=== PATIENT | male | born 1970 | race Caucasian/White ===

== ENCOUNTER 2017-02-18 12:02 | Emergency (ER) | payer SELFPAY ==
[~2017-02-18] VITALS: Ht 162.6 cm; Wt 71.8 kg
[~2017-02-18 12:02] MED LIST: ADVI200C9 PO; [UNRECOGNIZED DRUG - OTHER] PO
[2017-02-18 12:06] VITALS: BP 144/88; PULSE 71; RESP 12; TEMP 98.2; O2SAT 96
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
== END 2017-02-18 13:26 | disposition left against medical advice (07) ==
LOC: NED 12:02
DX: M25.531 Pain in right wrist (principal)
CPT/HCPCS: 99281

== ENCOUNTER 2017-02-20 13:16 | Emergency (ER) | payer SELFPAY ==
[~2017-02-20] VITALS: Ht 162.6 cm; Wt 72.0 kg
[2017-02-20 13:18] VITALS: BP 140/92; PULSE 72; RESP 18; TEMP 98.2; O2SAT 99
--- NOTE | 2017-02-20 13:54 | PD ---
Physical Exam Time Seen by Provider: 13:52 Narrative 46-year-old male presents to the emergency department complaining of right wrist pain and swelling times one and a half weeks. Denies injury. He is also complaining of left hip and lower back pain since November and says it is a work- related injury. Denies fever, vomiting. Denies incontinence of stool or urine. Denies IV drug use or cancer. Patient seen in triage. VS reviewed. Awaiting bed placement. See next providers note for final patient disposition. Data Data Last Documented VS Vital Signs Date Time Temp Pulse Resp B/P (MAP) Pulse Ox O2 Delivery O2 Flow Rate FiO2 02/20/17 13:18 98.2 72 18 140/92 (108) 99 Room Air Orders Orders Wrist, Complete ([id number]) (02/20/17 13:54) MDM Supervised Visit with CAMILA: Kriss Walker Feb 20, 2017 13:54
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
== END 2017-02-20 17:13 | disposition home or self-care (01) ==
LOC: NEPK 13:16
DX: S62.336A Displaced fracture of neck of fifth metacarpal bone, right hand, initial encounter for closed fracture (principal); S32.019A Unspecified fracture of first lumbar vertebra, initial encounter for closed fracture; M65.9 Synovitis and tenosynovitis, unspecified; M25.552 Pain in left hip; W18.30XA Fall on same level, unspecified, initial encounter
CPT/HCPCS: 72100; 73110; 73502; 99284

== ENCOUNTER 2018-02-10 10:23 | Observation (INO) ==
[2018-02-10] MEDS ORDERED: Clindamycin 900 mg/NS Premix 900 MG/50 ML PIGGYBACK IV.SIG ONE (10:59)
[2018-02-10] MEDS ORDERED: Morphine Inj 4 MG/ML Vial IV.PUSH ONE (10:59)
--- NOTE | 2018-02-10 11:10 | ED ---
HPI General Chief complaint: Dental/Oral Stated complaint: Face complaint/right side Time Seen by Provider: 02/10/18 10:56 History of Present Illness HPI Narrative: This is a 47-year-old male with a history of previous traumatic injury to his right mandible in [place], who presents today with complaints of swelling and pain to his right lower jaw. Patient states 2 days ago he noticed swelling and pain in his right jaw. He denies any recent tooth infections. Patient states that the swelling started under his right jaw. He denies any recent trauma. He denies any fevers, chills. He denies any difficulty swallowing. He does report that he has plates in his mandible. There are no other complaints at the time of my examination. Related Data Home Medications Medication Instructions Recorded Confirmed No Known Home Medications 02/10/18 02/10/18 Allergies Allergy/AdvReac Type Severity Reaction Status Date / Time iodine Allergy Intermediate Swelling Verified 02/10/18 11:47 potassium iodide Allergy Intermediate Swelling Verified 02/10/18 11:47 povidone-iodine Allergy Intermediate Swelling Verified 02/10/18 11:47 sodium iodide Allergy Intermediate Swelling Verified 02/10/18 11:47 sodium iodide Allergy Intermediate Swelling Verified 02/10/18 11:47 Review of Systems ROS: all other systems reviewed are negative Constitutional Denies chills and Denies fever(s) Eyes Reports system reviewed and no additional complaints, except as docu ENT Denies dental pain, Denies dysphagia, Denies headache(s), Denies sore throat, Denies throat swelling and Reports other (Pain and swelling of the right lower jaw and submandibular area.) Cardiovascular Reports system reviewed and no additional complaints, except as docu Respiratory Reports system reviewed and no additional complaints, except as docu Gastrointestinal Denies nausea and Denies vomiting Genitourinary Reports system reviewed and no additional complaints, except as [facility] Musculoskeletal Reports system reviewed and no additional complaints, except as [facility] Neurologic Denies dizziness and Denies headache(s) [facility] Medical History Medical History Patient denies medical problems (Acute) Social History Social History Second Hand Smoke Exposure: Yes Smoking Status: Current every day smoker Tobacco Type: Cigarettes How Often Do You Have a Drink Containing Alcohol: 4 or more times a week Recent Travel in [facility] within the Last 8 Weeks: No Recent Out of Country Travel within the Last 8 Weeks: No Substance Abuse Detail Crack/Cocaine: Substance Use Status: Active Route Used Substance Abuse: Inhalation Reason for Use: Feels Good and Get High Immunization History Tetanus Immunization: >5 Years Exam Narrative Exam Narrative: GENERAL: Well-developed well-nourished male in no acute respiratory distress. SKIN: Focused skin assessment warm/dry. HEAD: Atraumatic. Normocephalic. EYES: No scleral icterus. No injection or drainage. ENT: No nasal bleeding or discharge. Mucous membranes pink and moist. On examination patient's oropharynx he is missing teeth in the posterior molar distribution both upper and lower on the right side. There is no abscess or drainage noted. There is swelling noted in his right cheek and submandibular area. No woody edema. NECK: Trachea midline. Supple with full range of motion. CARDIOVASCULAR: Regular rate and rhythm. No murmur appreciated. RESPIRATORY: No accessory muscle use. Clear to auscultation. Breath sounds equal bilaterally. GASTROINTESTINAL: Abdomen soft, non-tender, nondistended. Hepatic and splenic margins not palpable. MUSCULOSKELETAL: No obvious deformities. No clubbing. No cyanosis. No edema. NEUROLOGICAL: Awake and alert. No obvious cranial nerve deficits. Motor grossly within normal limits. Normal speech. Course Initial Documented Vital Signs Temperature 98.7 F 02/10/18 10:37 Pulse Rate 78 02/10/18 10:37 Respiratory Rate 16 02/10/18 10:37 Blood Pressure 105/68 02/10/18 10:37 Pulse Oximetry 97 02/10/18 10:37 Last Documented Vital Signs Temperature 98.5 F 02/10/18 14:43 Pulse Rate 58 L 02/10/18 14:43 Respiratory Rate 16 02/10/18 14:43 Blood Pressure 108/71 02/10/18 14:43 Pulse Oximetry 97 02/10/18 14:43 Medical Decision Making [facility] Narrative Medical decision making narrative: This is a 47-year male who presents today with swelling to his right mandible. Patient has a plate from previous fracture that was placed in [place]. The patient has evidence of an infection. CT scan shows no evidence of abscess. He is been given 900 mg of IV clindamycin. Case was discussed with the maxillofacial physician on-call who recommended we keep him overnight and continue IV antibiotics. He states that if he responds well to the antibiotics, he can safely be discharged tomorrow and he will see him Tuesday in his office. Patient was admitted to the [facility] teaching service. There are made aware of the plan. Medical Screen Exam Complete: Yes Emergency Medical Condition: Yes Differential Diagnosis Differential Diagnosis: Submandibular abscess versus dental abscess versus Tom's angina Lab Data Result diagrams: 02/10/18 11:14 02/10/18 11:14 Lab Results 02/10/18 02/10/18 Range/Units 11:14 11:14 WBC 7.9 (4.0-11.0) th/mm3 RBC 4.45 L (4.50-5.90) mil/mm3 Hgb 14.5 (13.0-17.0) gm/dL Hct 42.7 (39.0-51.0) % MCV 95.9 (80.0-100.0) fL MCH 32.5 (27.0-34.0) pg MCHC 33.8 (32.0-36.0) % RDW 13.4 (11.6-17.2) % Plt Count 208 (150-450) th/mm3 MPV 7.5 (7.0-11.0) fL Neut % (Auto) 80.8 H (16.0-70.0) % Lymph % (Auto) 11.0 (9.0-44.0) % [place] % (Auto) 6.3 (0.0-8.0) % Eos % (Auto) 1.6 (0.0-4.0) % Baso % (Auto) 0.3 (0.0-2.0) % Neut # (Auto) 6.4 (1.8-7.7) th/mm3 Lymph # (Auto) 0.9 L (1.0-4.8) th/mm3 [place] # (Auto) 0.5 (0.0-0.9) th/mm3 Eos # (Auto) 0.1 (0.0-0.4) th/mm3 Baso # (Auto) 0.0 (0.0-0.2) th/mm3 WBC Differential . Differential Comment Auto diff final Sodium 139 (136-145) meq/L Potassium 3.8 (3.5-5.1) meq/L Chloride 104 (98-107) meq/L Carbon Dioxide 29.2 (21.0-32.0) meq/L Anion Gap 6 (5-15) meq/L BUN 12 (7-18) mg/dL Creatinine 0.83 (0.60-1.30) mg/dL Estimated GFR Greater than 89 (>89) mL/min Random Glucose 117 H (74-106) mg/dL Calcium 8.5 (8.5-10.1) mg/dL Imaging Data Radiologist's impression: Face CT 02/10/18 10:59 CONCLUSION: 1. Right mandibular plate with soft tissue swelling over the plate. I don't see a defined abscess. 2. Lack of intravenous contrast makes detection of subtle inflammatory process is difficult. Soft Tissue Neck CT 02/10/18 10:59 CONCLUSION: 1. Soft tissue swelling right side of the face probably associated with the plate on the mandible. I don't see an obvious abscess 2. Lack of intravenous contrast makes detection of a subtle abscess difficult. Discharge Plan Discharge Disposition Patient Disposition: ED Admit(ED Internal Use Only) Discharge Order Discharge Orders: ED Use Only Admit Order (Routine); Ordered 02/10/18 Ordered By: Alex Rahman Discharge Details Diagnosis: Smoker, Infection of mandible Physicians Team ED Provider: Alex Rahman Primary Care Provider: Primary Care Paige Zapata Attending Provider: Nitish Cruz Status ED Status: Admitted Observation Patient
[2018-02-10 11:33] LABS: Baso % (Auto) 0.3 % (0.0-2.0); Eos # (Auto) 0.1 th/mm3 (0.0-0.4); Eos % (Auto) 1.6 % (0.0-4.0); Hematocrit 42.7 % (39.0-51.0); Hemoglobin 14.5 gm/dL (13.0-17.0); Lymph # (Auto) 0.9 th/mm3 (1.0-4.8); Mean Corpuscular HGB Conc 33.8 % (32.0-36.0); Mean Corpuscular Hemoglobin 32.5 pg (27.0-34.0); Mean Corpuscular Volume 95.9 fL (80.0-100.0); Mean Platelet Volume 7.5 fL (7.0-11.0); Mono # (Auto) 0.5 th/mm3 (0.0-0.9); Mono % (Auto) 6.3 % (0.0-8.0); Neut # (Auto) 6.4 th/mm3 (1.8-7.7); Neut % (Auto) 80.8 % (16.0-70.0); Platelet Count 208 th/mm3 (150-450); Red Blood Count 4.45 mil/mm3 (4.50-5.90); Red Cell Distribution Width 13.4 % (11.6-17.2); White Blood Count 7.9 th/mm3 (4.0-11.0)
[2018-02-10 11:48] LABS: Anion Gap 6 meq/L (5-15); Blood Urea Nitrogen 12 mg/dL (7-18); Calcium 8.5 mg/dL (8.5-10.1); Carbon Dioxide 29.2 meq/L (21.0-32.0); Chloride 104 meq/L (98-107); Glomerular Filtration Rate Greater Than 89 mL/min (>89); Glucose,Random 117 mg/dL (74-106); Potassium 3.8 meq/L (3.5-5.1); Sodium 139 meq/L (136-145)
--- NOTE | 2018-02-10 12:04 | CT ---
EXAM DATE: 02/10/2018 11:33 AM EST AGE/SEX: 47 years / Male INDICATIONS: Right side facial pain and swelling. CLINICAL DATA: This is the patient's initial encounter. Patient reports that signs and symptoms have been present for 3 days and indicates a pain score of 6/10. MEDICAL/SURGICAL HISTORY: None. None. RADIATION DOSE: 29.29 CTDI (mGy) COMPARISON: No prior exams available for comparison. TECHNIQUE: Contiguous images in the axial and coronal planes were obtained using helical multirow de tector technique. Using automated exposure control and adjustment of the mA and/or kV according to p atient size, radiation dose was kept as low as reasonably achievable to obtain optimal diagnostic sam lity images. DICOM format image data is available electronically for review and comparison. FINDINGS: Orbits: The orbital and infraorbital osseous structures are intact. The retroconal structures have a normal configuration. No radiopaque foreign bodies are seen. Nasal Bone: The nasal bone and maxillary spine are intact. Zygomatic Arches: Symmetric without evidence of fracture. Plate is seen on the right mandible. Sinuses: The maxillary, ethmoid, and frontal sinuses are intact. No air-fluid levels seen. Nasal Cavity: The nasal septum is intact and midline. The lacrimal ducts are intact. Soft Tissues: No radiopaque foreign bodies seen. No soft-tissue swelling is seen. Intracranial: No intracranial air seen. Cribriform Plate: Grossly intact. CONCLUSION: 1. Right mandibular plate with soft tissue swelling over the plate. I don't see a defined abscess. 2. Lack of intravenous contrast makes detection of subtle inflammatory process is difficult. Electronically signed by: Se Jonas MD Board Certified Radiologist 02/10/2018 12:03 PM EST
--- NOTE | 2018-02-10 12:06 | CT ---
EXAM DATE: 02/10/2018 11:34 AM EST AGE/SEX: 47 years / Male INDICATIONS: Right side facial pain and swelling. CLINICAL DATA: This is the patient's initial encounter. Patient reports that signs and symptoms have been present for 3 days and indicates a pain score of 6/10. MEDICAL/SURGICAL HISTORY: None. Non-responsive. RADIATION DOSE: 13.65 CTDI (mGy) COMPARISON: No prior exams available for comparison. TECHNIQUE: Helical acquisition was performed using a multirow detector CT scanner without contrast. Using automated exposure control and adjustment of the mA and/or kV according to patient size, radiat ion dose was kept as low as reasonably achievable to obtain optimal diagnostic quality images. DICOM format image data is available electronically for review and comparison. Study was done without int ravenous contrast. FINDINGS: Plate is seen at the angle of the mandible on the right. There is generalized soft tissue swelling ab out the right side of the face. This appears be associated with this plate. I don't see bony destruction to suggest osteomyelitis Lack of intravenous contrast makes exclusion of an abscess difficult. Minimal nonspecific cervical adenopathy is present. Region of the true vocal cord appears normal. Thyroid is unremarkable. CONCLUSION: 1. Soft tissue swelling right side of the face probably associated with the plate on the mandible. I don't see an obvious abscess 2. Lack of intravenous contrast makes detection of a subtle abscess difficult. Electronically signed by: Se Jonas MD Board Certified Radiologist 02/10/2018 12:05 PM EST
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
[2018-02-10] MEDS ORDERED: Bisacodyl 10 MG Supp RECTAL PRN (14:42)
[2018-02-10] MEDS ORDERED: Acetaminophen 325 MG Tablet PO PRN (14:42)
[2018-02-10] MEDS: levoFLOXacin 500 MG Tablet PO SCH (15:29)
--- NOTE | 2018-02-10 16:13 | US ---
EXAM DATE: 02/10/2018 4:05 PM EST AGE/SEX: 47 years / Male INDICATIONS: Right sided facial pain and swelling. CLINICAL DATA: This is the patient's initial encounter. Patient reports that signs and symptoms have been present for 3 days and indicates a pain score of 7/10. MEDICAL/SURGICAL HISTORY: None. None. COMPARISON: [facility], CT FACIAL BONES WO CON, 02/10/2018. . FINDINGS: Imaging through the deep subcutaneous tissues along the right side of the face above the mandible dem onstrates a complex appearing fluid collection measuring 2.4 x 1.2 x 2.3 cm. Review of the patient's previous CT demonstrates a plate in this area. In the appropriate clinical setting, this would be con cerning for abscess adjacent to the surgical plate. CONCLUSION: 1. 2.4 x 1.2 x 2.3 cm complex fluid collection anterior to the right side of the mandible concerning for possible abscess. Electronically signed by: Darwin Jonas MD Board Certified Radiologist 02/10/2018 4:11 PM EST
[2018-02-10 21:28] LABS: Hepatitits B Surface Antigen Nonreactive (Nonreactive)
[2018-02-10 21:50] LABS: Hepatitis A IgM Antibody Nonreactive (Nonreactive)
[2018-02-10] MEDS ORDERED: Ketorolac Inj 30 MG/ML (IVP) Vial IV.PUSH PRN (22:24)
[2018-02-10] MEDS ORDERED: Naloxone Inj 0.4 MG/ML Vial IV.PUSH PRN (22:24)
[2018-02-10] MEDS: Ibuprofen 600 MG Tablet PO PRN (22:40)
[2018-02-11 06:13] LABS: Baso # (Auto) 0.1 th/mm3 (0.0-0.2); Baso % (Auto) 1.8 % (0.0-2.0); Eos # (Auto) 0.2 th/mm3 (0.0-0.4); Eos % (Auto) 3.9 % (0.0-4.0); Hematocrit 37.9 % (39.0-51.0); Hemoglobin 13.5 gm/dL (13.0-17.0); Lymph # (Auto) 1.4 th/mm3 (1.0-4.8); Lymph % (Auto) 28.2 % (9.0-44.0); Mean Corpuscular HGB Conc 35.6 % (32.0-36.0); Mean Corpuscular Volume 95.3 fL (80.0-100.0); Mean Platelet Volume 7.6 fL (7.0-11.0); Mono # (Auto) 0.4 th/mm3 (0.0-0.9); Mono % (Auto) 7.5 % (0.0-8.0); Neut % (Auto) 58.6 % (16.0-70.0); Platelet Count 169 th/mm3 (150-450); Red Blood Count 3.97 mil/mm3 (4.50-5.90); Red Cell Distribution Width 13.3 % (11.6-17.2); White Blood Count 5.1 th/mm3 (4.0-11.0)
[2018-02-11] MEDS: levoFLOXacin 500 MG Tablet PO SCH (09:21)
[2018-02-11] MEDS: Ibuprofen 600 MG Tablet PO PRN (10:32)
--- NOTE | 2018-02-11 14:08 | P.PNFP ---
Subjective Interval history: Patient reports pain and swelling that is largely unchanged. He reports not much sleep last night. He otherwise denies any fever, chills, chest pain, shortness of breath. He reports that he is eating, drinking, going to the bathroom well without any problems. Discussed plan of care with patient who expressed understanding. <Nitish Dennison - 02/11/18 14:08> Results - Labs Result diagrams: 02/11/18 05:25 02/10/18 11:14 <Nitish Cruz - 02/11/18 14:22> Abnormal lab results 02/11/18 Range/Units 05:25 RBC 3.97 L (4.50-5.90) mil/mm3 Hct 37.9 L (39.0-51.0) % Short CBC 02/11/18 Range/Units 05:25 WBC 5.1 (4.0-11.0) th/mm3 Hgb 13.5 (13.0-17.0) gm/dL Hct 37.9 L (39.0-51.0) % Plt Count 169 (150-450) th/mm3 <Nitish Cruz - 02/11/18 14:22> Abnormal lab results 02/11/18 Range/Units 05:25 RBC 3.97 L (4.50-5.90) mil/mm3 Hct 37.9 L (39.0-51.0) % Short CBC 02/11/18 Range/Units 05:25 WBC 5.1 (4.0-11.0) th/mm3 Hgb 13.5 (13.0-17.0) gm/dL Hct 37.9 L (39.0-51.0) % Plt Count 169 (150-450) th/mm3 <Nitish Dennison - 02/11/18 14:08> - Imaging Impressions Soft Tissue Ultrasound 02/10/18 00:00 CONCLUSION: 1. 2.4 x 1.2 x 2.3 cm complex fluid collection anterior to the right side of the mandible concerning for possible abscess. <Nitish Cruz - 02/11/18 14:22> Impressions Soft Tissue Ultrasound 02/10/18 00:00 CONCLUSION: 1. 2.4 x 1.2 x 2.3 cm complex fluid collection anterior to the right side of the mandible concerning for possible abscess. <Nitish Dennison - 02/11/18 14:08> Physical Exam Vital signs: Vital Signs 02/10/18 14:43 02/10/18 16:50 02/10/18 20:00 Temperature 98.5 F 98.1 F Pulse Rate 58 L 67 Respiratory Rate 16 16 16 Blood Pressure 108/71 124/67 Pulse Oximetry 97 99 02/10/18 20:08 02/11/18 00:00 02/11/18 04:00 Temperature 97.9 F 96.8 F L 96.8 F L Pulse Rate 85 66 66 Respiratory Rate 24 16 16 Blood Pressure 122/62 110/60 110/60 Pulse Oximetry 95 95 95 02/11/18 08:00 02/11/18 11:39 Temperature 98.0 F 98.0 F Pulse Rate 61 67 Respiratory Rate 12 16 Blood Pressure 111/65 114/67 Pulse Oximetry 93 L 96 Intake & Output 02/10/18 02/11/18 02/11/18 18:59 06:59 18:59 Intake Total 106 / 106 208 / 208 104 / 104 Balance 106 / 106 208 / 208 104 / 104 Weight 71.668 kg Intake: IV 106 / 106 208 / 208 104 / 104 Cleocin Inj 600 MG In NS Inj 208 / 208 104 / 104 100 ML @ 208 mls/hr IV.SIG Q8H [facility] Rx#:[id number] Cleocin Inj 900 MG In NS Inj 106 / 106 100 ML @ 200 mls/hr IV.SIG ONCE ONE Rx#:[id number] Other: Date of Last Bowel Movement 02/08/17 <Nitish Cruz L - 02/11/18 14:22> Vital Signs 02/10/18 14:43 02/10/18 16:50 02/10/18 20:00 Temperature 98.5 F 98.1 F Pulse Rate 58 L 67 Respiratory Rate 16 16 16 Blood Pressure 108/71 124/67 Pulse Oximetry 97 99 02/10/18 20:08 02/11/18 00:00 02/11/18 04:00 Temperature 97.9 F 96.8 F L 96.8 F L Pulse Rate 85 66 66 Respiratory Rate 24 16 16 Blood Pressure 122/62 110/60 110/60 Pulse Oximetry 95 95 95 02/11/18 08:00 02/11/18 11:39 Temperature 98.0 F 98.0 F Pulse Rate 61 67 Respiratory Rate 12 16 Blood Pressure 111/65 114/67 Pulse Oximetry 93 L 96 Intake & Output 02/10/18 02/11/18 02/11/18 18:59 06:59 18:59 Intake Total 106 / 106 208 / 208 104 / 104 Balance 106 / 106 208 / 208 104 / 104 Weight 71.668 kg Intake: IV 106 / 106 208 / 208 104 / 104 Cleocin Inj 600 MG In NS Inj 208 / 208 104 / 104 100 ML @ 208 mls/hr IV.SIG Q8H [facility] Rx#:[id number] Cleocin Inj 900 MG In NS Inj 106 / 106 100 ML @ 200 mls/hr IV.SIG ONCE ONE Rx#:[id number] Other: Date of Last Bowel Movement 02/08/17 <Cheyenne BaptisteNitish Dorado - 02/11/18 14:08> Narrative: GENERAL: SKIN: Warm and dry. HEAD: Atraumatic. Normocephalic. EYES: Pupils equal and round. No scleral icterus. No injection or drainage. ENT: No nasal bleeding or discharge. Mucous membranes pink and moist. Exam seems unchanged: Site of induration, swelling, and warmth about 8cm in diameter overlying the right mid-mandible. +Tenderness of the site. No fluctuance. No drainage noted overlying the skin. Within the oral mucosa, no sinus or sign of injury, no erythema of the gums noted, but there is a decay-eroded tooth. No drainage or bleeding noted. Slight tenderness of the right mastoid to palpation. No cervical LAD or LAD of anterior or posterior cervical neck chains. No erythema of the posterior pharynx or the oral mucosa. No swelling or tenderness of the external pinna. Decaying teeth noted in the mouth, noted at the far lateral teeth at the upper and lower gums. No evidence of gingivitis or gum lesions or inflammation. No evidence of tracking of infection. NECK: Trachea midline. No JVD. CARDIOVASCULAR: Regular rate. RESPIRATORY: No accessory muscle use. No respiratory distress. GASTROINTESTINAL: Abdomen non distended. MUSCULOSKELETAL: Extremities without clubbing, cyanosis, or edema. No obvious deformities. NEUROLOGICAL: Awake and alert. No obvious cranial nerve deficits. Motor grossly within normal limits. PSYCHIATRIC: Appropriate mood and affect; insight and judgment normal. <Cheyenne BaptisteNitish Dorado Jenifer 02/11/18 14:08> Assessment and Plan - Assessment (1) Right facial swelling Code(s): R22.0 - Localized swelling, mass and lump, head Status: Acute (2) Smoker Code(s): F17.200 - Nicotine dependence, unspecified, uncomplicated Status: Acute <Nitish Cruz - 02/11/18 14:22> (1) Right facial swelling Code(s): R22.0 - Localized swelling, mass and lump, head Status: Acute Plan: 47-year-old patient with a history of mandibular implant presents with right- sided facial swelling concerning for abscess based on imaging. Will admit patient for IV antibiotics and discharge to present immediately and directly to [facility]. ED physician spoke to [facility] Dr. Abrams, who advised patient be on IV abx. Dr. Aviles again d/w Dr. Abrams, who advised IV abx until Tuesday morning, and then send patient directly to his office for possible abscess drainage or removal of prosthesis. Clinda 600 mg IV q8H Levaquin PO 500 q24h for adequate coverage Add dexamethasone 4 mg IV every 6 because of concern that patient's physical exam is largely unchanged, and antibiotics may not be getting to where they need to get to because of inflammation Trend CBC: stilll no leukocytosis HIV and Hep profile non-reactive Imaging: CT face showed 1. Right mandibular plate with soft tissue swelling over the plate. I don't see a defined abscess. 2. Lack of intravenous contrast makes detection of subtle inflammatory process is difficult. CT soft tissue showed 1. Soft tissue swelling right side of the face probably associated with the plate on the mandible. I don't see an obvious abscess 2. Lack of intravenous contrast makes detection of a subtle abscess difficult. Soft tissue US showed 1. 2.4 x 1.2 x 2.3 cm complex fluid collection anterior to the right side of the mandible concerning for possible abscess. (2) Smoker Code(s): F17.200 - Nicotine dependence, unspecified, uncomplicated Status: Acute Plan: Nicotine patches daily <Nitish Dennison - 02/11/18 13:52> - Assessment and Plan Discussed Condition With: Dr. Stefan Thomas <Nitish Dennison - 02/11/18 14:08> - Attending Attestation The exam, history, and the medical decision-making described in the above note were completed with the assistance of the resident physician. I reviewed and agree with the findings presented. I attest that I had a osmy-er-woen encounter with the patient on the same day, and personally performed and documented my assessment and findings in the medical record. Seen with Dr. Aviles and Dr. Quinn this morning. Right face swelling appears similar to yesterday. Not having difficulty swallowing or breathing. Eating/drinking normally. Otherwise feels well. No fevers or chills. Continuing IV antibiotics. Touched base with [facility], recommended continuing IV antibiotics until Tuesday, and then sending him to them to follow up outpatient and for possible drainage at that time. Will continue to keep in touch with [facility] and update them on daily progress. <Nitish Cruz - 02/11/18 14:22>
[2018-02-12] MEDS: Ibuprofen 600 MG Tablet PO PRN ×2 (00:11→06:43)
[2018-02-12 06:06] LABS: Baso % (Auto) 0.4 % (0.0-2.0); Hematocrit 40.7 % (39.0-51.0); Lymph # (Auto) 0.6 th/mm3 (1.0-4.8); Lymph % (Auto) 10.8 % (9.0-44.0); Mean Corpuscular HGB Conc 34.5 % (32.0-36.0); Mean Corpuscular Hemoglobin 33.2 pg (27.0-34.0); Mean Corpuscular Volume 96.2 fL (80.0-100.0); Mono # (Auto) 0.1 th/mm3 (0.0-0.9); Mono % (Auto) 1.8 % (0.0-8.0); Neut # (Auto) 5.1 th/mm3 (1.8-7.7); Platelet Count 196 th/mm3 (150-450); Red Blood Count 4.23 mil/mm3 (4.50-5.90); Red Cell Distribution Width 13.6 % (11.6-17.2); White Blood Count 5.9 th/mm3 (4.0-11.0)
[2018-02-12] MEDS: levoFLOXacin 500 MG Tablet PO SCH (08:33)
--- NOTE | 2018-02-12 12:08 | P.PNFP ---
Subjective Interval history: Vitals within normal limits. Patient endorses improvement in pain swelling. No other complaints. <Sudha Jeffery - 02/12/18 12:07> Results - Labs Result diagrams: 02/12/18 05:15 02/10/18 11:14 <Nitish Cruz L - 02/13/18 08:46> Abnormal lab results 02/12/18 Range/Units 05:15 RBC 4.23 L (4.50-5.90) mil/mm3 Neut % (Auto) 87.0 H (16.0-70.0) % Lymph # (Auto) 0.6 L (1.0-4.8) th/mm3 Short CBC 02/12/18 Range/Units 05:15 WBC 5.9 (4.0-11.0) th/mm3 Hgb 14.0 (13.0-17.0) gm/dL Hct 40.7 (39.0-51.0) % Plt Count 196 (150-450) th/mm3 <Sudha Jeffery - 02/12/18 12:07> Physical Exam Vital signs: Vital Signs 02/12/18 11:00 02/12/18 15:15 02/12/18 20:00 Temperature 97.9 F 98 F 98.1 F Pulse Rate 85 71 62 Respiratory Rate 20 20 14 Blood Pressure 107/62 119/56 L 118/67 Pulse Oximetry 96 95 94 L 02/13/18 00:25 02/13/18 04:00 02/13/18 08:03 Temperature 98.4 F 98.1 F 98.0 F Pulse Rate 83 72 80 Respiratory Rate 14 14 16 Blood Pressure 124/68 122/70 140/66 Pulse Oximetry 96 95 94 L Intake & Output 02/12/18 02/13/18 02/13/18 18:59 06:59 18:59 Intake Total 104 / 104 208 / 208 Balance 104 / 104 208 / 208 Intake: IV 104 / 104 208 / 208 Cleocin Inj 600 MG In NS Inj 104 / 104 208 / 208 100 ML @ 208 mls/hr IV.SIG Q8H [facility] Rx#:[id number] Other: Date of Last Bowel Movement 02/12/18 <Nitish Cruz Meron - 02/13/18 08:46> Vital Signs 02/11/18 15:28 02/11/18 19:42 02/11/18 20:00 Temperature 98.3 F 98.4 F Pulse Rate 78 69 Respiratory Rate 16 20 20 Blood Pressure 103/56 L 99/50 L Pulse Oximetry 94 L 97 02/11/18 23:25 02/12/18 03:40 02/12/18 08:10 Temperature 97.8 F 97.8 F 96.5 F L Pulse Rate 89 80 70 Respiratory Rate 18 18 20 Blood Pressure 112/69 111/62 119/68 Pulse Oximetry 98 99 91 L 02/12/18 11:00 Temperature 97.9 F Pulse Rate 85 Respiratory Rate 20 Blood Pressure 107/62 Pulse Oximetry 96 Intake & Output 02/11/18 02/12/18 02/12/18 18:59 06:59 18:59 Intake Total 104 / 104 568 / 568 Balance 104 / 104 568 / 568 Weight 71.6 kg Intake: IV 104 / 104 208 / 208 Cleocin Inj 600 MG In NS Inj 104 / 104 208 / 208 100 ML @ 208 mls/hr IV.SIG Q8H [facility] Rx#:[id number] Oral 360 / 360 Other: # Voids 1 Date of Last Bowel Movement 02/08/17 <Sumaya SantosSudha Mayra - 02/12/18 12:07> Narrative: GENERAL: SKIN: Warm and dry. HEAD: Atraumatic. Normocephalic. EYES: No scleral icterus. No injection or drainage. ENT: No nasal bleeding or discharge. Mucous membranes pink and moist. Exam seems unchanged: Site of induration, swelling, and warmth has significantly improved since admission. NECK: Trachea midline. No JVD. CARDIOVASCULAR: Regular rate. RESPIRATORY: No accessory muscle use. No respiratory distress. GASTROINTESTINAL: Abdomen non distended. MUSCULOSKELETAL: Extremities without clubbing, cyanosis, or edema. No obvious deformities. NEUROLOGICAL: Awake and alert. No obvious cranial nerve deficits. Motor grossly within normal limits. PSYCHIATRIC: Appropriate mood and affect; insight and judgment normal. <Sumaya Sudha Santos Mayra - 02/12/18 12:07> Assessment and Plan - Assessment (1) Right facial swelling Code(s): R22.0 - Localized swelling, mass and lump, head Status: Acute (2) Smoker Code(s): F17.200 - Nicotine dependence, unspecified, uncomplicated Status: Acute <Nitish Cruz - 02/13/18 08:46> (1) Right facial swelling Code(s): R22.0 - Localized swelling, mass and lump, head Status: Acute Plan: Soft tissue US showed 1. 2.4 x 1.2 x 2.3 cm complex fluid collection anterior to the right side of the mandible concerning for possible abscess. Based on discussion with Dr. Abrams, plan for IV abx until Tuesday morning, and then send patient directly to his office for possible abscess drainage or removal of prosthesis. Clinda 600 mg IV q8H day #2 Levaquin PO 500 q24h for adequate coverage day #3 On dexamethasone 4 mg IV every 6hrs day #2 because of concern that patient's physical exam is largely unchanged, and antibiotics may not be getting to where they need to get to because of inflammation (2) Smoker Code(s): F17.200 - Nicotine dependence, unspecified, uncomplicated Status: Acute Plan: Nicotine patches daily <Sudha Jeffery - 02/12/18 12:03> - Assessment and Plan Discharge Planning: Discharge tomorrow with [facility] follow-up <Sudha Jeffery - 02/12/18 12:07> - Attending Attestation I discussed management plan with resident and agree with documentation above. Plan is to continue IV antibiotics until 02/13/18, and then discharge directly to [facility] [place]. Plan of care was discussed with Dr. Abrams. Dexamethasone added for swelling. May need removal of prosthesis and drainage of abscess which will be managed in the outpatient setting. He remains clinically stable without progression of symptoms. <Nitish Cruz - 02/13/18 08:46>
[2018-02-13] MEDS: Ibuprofen 600 MG Tablet PO PRN ×2 (00:47→08:22)
[2018-02-13 08:05] VITALS: BP 140/66; PULSE 80; RESP 16; TEMP 98; O2SAT 94
[2018-02-13] MEDS: levoFLOXacin 500 MG Tablet PO SCH (08:22)
--- NOTE | 2018-02-13 08:28 | P.PNFP ---
Subjective Interval history: Patient seen and examined this morning. No acute events overnight. Patient reports significantly decreased swelling in his jaw at this time. Denies nausea, vomiting, fever, chills, abdominal pain, chest pain, shortness of breath, lightheadedness, dizziness. Patient reports is significantly improved from admission. No other complaints at this time. <Easton Nitish Santos A - 02/13/18 09:16> Results - Labs Result diagrams: 02/12/18 05:15 02/10/18 11:14 <Nitish Cruz - 02/13/18 17:31> Physical Exam Vital signs: Vital Signs 02/12/18 20:00 02/13/18 00:25 02/13/18 04:00 Temperature 98.1 F 98.4 F 98.1 F Pulse Rate 62 83 72 Respiratory Rate 14 14 14 Blood Pressure 118/67 124/68 122/70 Pulse Oximetry 94 L 96 95 02/13/18 08:03 Temperature 98.0 F Pulse Rate 80 Respiratory Rate 16 Blood Pressure 140/66 Pulse Oximetry 94 L Intake & Output 02/12/18 02/13/18 02/13/18 18:59 06:59 18:59 Intake Total 104 / 104 208 / 208 Balance 104 / 104 208 / 208 Intake: IV 104 / 104 208 / 208 Cleocin Inj 600 MG In NS Inj 104 / 104 208 / 208 100 ML @ 208 mls/hr IV.SIG Q8H [facility] Rx#:[id number] Other: Date of Last Bowel Movement 02/12/18 <Nitish Cruz - 02/13/18 17:31> Vital Signs 02/12/18 11:00 02/12/18 15:15 02/12/18 20:00 Temperature 97.9 F 98 F 98.1 F Pulse Rate 85 71 62 Respiratory Rate 20 20 14 Blood Pressure 107/62 119/56 L 118/67 Pulse Oximetry 96 95 94 L 02/13/18 00:25 02/13/18 04:00 02/13/18 08:03 Temperature 98.4 F 98.1 F 98.0 F Pulse Rate 83 72 80 Respiratory Rate 14 14 16 Blood Pressure 124/68 122/70 140/66 Pulse Oximetry 96 95 94 L Intake & Output 02/12/18 02/13/18 02/13/18 18:59 06:59 18:59 Intake Total 104 / 104 208 / 208 Balance 104 / 104 208 / 208 Intake: IV Cleocin Inj 600 MG In NS Inj 100 ML @ 208 mls/hr IV.SIG Q8H [facility] Rx#:[id number] Other: Date of Last Bowel Movement 02/12/18 <Nitish Perez - 02/13/18 08:28> Narrative: GENERAL: SKIN: Warm and dry. HEAD: Atraumatic. Normocephalic. EYES: No scleral icterus. No injection or drainage. ENT: No nasal bleeding or discharge. Mucous membranes pink and moist. Minimal swelling in right mandible, mild tenderness NECK: Trachea midline. No JVD. CARDIOVASCULAR: Regular rate. RESPIRATORY: No accessory muscle use. No respiratory distress. GASTROINTESTINAL: Abdomen non distended. MUSCULOSKELETAL: Extremities without clubbing, cyanosis, or edema. No obvious deformities. NEUROLOGICAL: Awake and alert. No obvious cranial nerve deficits. Motor grossly within normal limits. PSYCHIATRIC: Appropriate mood and affect; insight and judgment normal. <Nitish Perez - 02/13/18 09:16> Assessment and Plan - Assessment (1) Right facial swelling Code(s): R22.0 - Localized swelling, mass and lump, head Status: Acute (2) Smoker Code(s): F17.200 - Nicotine dependence, unspecified, uncomplicated Status: Acute <Nitish Cruz - 02/13/18 17:31> (1) Right facial swelling Code(s): R22.0 - Localized swelling, mass and lump, head Status: Acute Plan: Soft tissue US showed 1. 2.4 x 1.2 x 2.3 cm complex fluid collection anterior to the right side of the mandible concerning for possible abscess. Based on medical team's discussion with Dr. Abrams, plan for IV abx until today , and then send patient directly to his office for possible abscess drainage or removal of prosthesis. Called office again this morning, patient to go over immediately after discharge. Clinda 600 mg IV q8H day #3 Levaquin PO 500 q24h for adequate coverage day #4 (2) Smoker Code(s): F17.200 - Nicotine dependence, unspecified, uncomplicated Status: Acute Plan: Nicotine patches daily <Nitish Perez - 02/13/18 09:12> - Attending Attestation Attending note: Discussed plan of care with resident physician, agree with documentation above. Patient [place] [place] definitive management (possible abscess drainage and possible removal of hardware) right after being discharged today. Patient's abscess clinically stable, no neck or chest pain, no dysphagia, no difficulty breathing. <Nitish Cruz - 02/13/18 17:31>
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
== END 2018-02-13 09:29 | disposition home or self-care (01) ==
LOC: NEPC 10:23 → NEDA 10:23 → NEPHCDU 16:50
PROVIDERS: ADMIT Family Medicine; ATTEND Family Medicine
DX: F14.90 Cocaine use, unspecified, uncomplicated; Z91.041 Radiographic dye allergy status; L02.01 Cutaneous abscess of face; F17.210 Nicotine dependence, cigarettes, uncomplicated
CPT/HCPCS: 70486; 70490; 76999; 80048; 80074; 85025; 87389; 90765; 90775; 96365; 96366; 96375; 96376; 99285; G0378; J1100; J2270; J2405